=== PATIENT | male | born 1990 | race Caucasian/White ===

== ENCOUNTER 2018-05-27 14:27 | Day surgery (SDC) | payer OTHER ==
[2018-05-27] MEDS ORDERED: LABETALOL HCL 20MG INJ IV (17:00)
[2018-05-27] MEDS ORDERED: FENTAnyl 50 MCG/ML VIAL IV ×2 (17:00)
[2018-05-27] MEDS ORDERED: IPRATROPIUM (NEB) 0.5 MG/2.5 ML AMP HHN (17:00)
[2018-05-27] MEDS ORDERED: ONDANSETRON 4 MG INJ IV (17:00)
[2018-05-27] MEDS ORDERED: OXYCODONE/ACETAMINOPHEN (5/325) TAB PO ×2 (17:00)
[2018-05-27] MEDS ORDERED: hydrALAzine 20 MG INJ IV (17:00)
[2018-05-27] MEDS ORDERED: EPHEDrine SULFATE 50 MG/5 ML SYG IV (17:00)
[2018-05-27] MEDS ORDERED: MIDAZOLAM 1 MG/ML 2 ML INJ IV (17:00)
[2018-05-27] MEDS ORDERED: MEPERIDINE 25 MG INJ IV (17:00)
[2018-05-27] MEDS ORDERED: TRIMETHOBENZAMIDE 100 MG/ML VIAL IM (17:00)
[2018-05-27] MEDS ORDERED: ALBUTEROL 0.083% (NEB) 2.5 MG/3 ML AMP HHN (17:00)
[2018-05-27] MEDS ORDERED: DIPHENHYDRAMINE 50 MG INJ IV (17:00)
[2018-05-27] MEDS ORDERED: HYDROmorphONE 1 MG/5 ML IV SYRINGE IV ×2 (17:00)
[2018-05-27] MEDS ORDERED: CEFAZOLIN 1 GM INJ (17:23)
[2018-05-27] MEDS ORDERED: GLYCOPYRROLATE 0.4 MG INJ (17:23)
[2018-05-27] MEDS ORDERED: ROCURONIUM 50 MG INJ (17:23)
[2018-05-27] MEDS ORDERED: PROPOFOL 20 ML (17:23)
[2018-05-27] MEDS ORDERED: NEOSTIGMINE 3 MG/3 ML SYRINGE (17:23)
[2018-05-27] MEDS ORDERED: MIDAZOLAM 1 MG/ML 2 ML INJ (17:24)
[2018-05-27] MEDS ORDERED: DEXAMETHASONE 4 MG/ML 5 ML INJ (17:24)
[2018-05-27] MEDS ORDERED: ONDANSETRON 4 MG INJ (17:24)
[2018-05-27] MEDS ORDERED: FENTAnyl 50 MCG/ML VIAL ×2 (17:24→17:46)
[2018-05-27] MEDS: BUPIVACAINE 0.5% (SDV) 30 ML INJ (17:55)
[2018-05-27] MEDS: POLYMYXIN/BACITRACIN 1L IRRIG IRR (18:05)
[2018-05-27] MEDS ORDERED: KETOROLAC 30 MG INJ (18:13)
[2018-05-27] MEDS ORDERED: SUGAMMADEX SODIUM 200 MG/2 ML VIAL IV (18:13)
[2018-05-27] MEDS: HYDROmorphONE 1 MG/5 ML IV SYRINGE IV (18:47)
[2018-05-27] MEDS: FENTAnyl 50 MCG/ML VIAL IV (18:48)
== END 2018-05-27 19:45 | disposition home or self-care (01) ==
LOC: SDS 14:27
DX: S62.201A Unspecified fracture of first metacarpal bone, right hand, initial encounter for closed fracture (principal); X58.XXXA Exposure to other specified factors, initial encounter; Y93.89 Activity, other specified; Y92.89 Other specified places as the place of occurrence of the external cause; Y99.8 Other external cause status
CPT/HCPCS: 26746; 73130-RT